=== PATIENT | female | born 1985 | race Caucasian/White ===

== ENCOUNTER 2021-12-16 07:04 | Emergency (ER) | payer MEDICAID ==
[~2021-12-16] VITALS: Ht 160 cm; Wt 68.2 kg
[2021-12-16 07:08] VITALS: BP 126/84
[2021-12-16] MEDS ORDERED: acetaminophen 325mg tablet PO ONE (08:10)
[2021-12-16] MEDS ORDERED: ibuprofen tablet 400 MG TABLET PO ONE (08:10)
[2021-12-16] MEDS ORDERED: BACI1PAC7 TP (08:25)
== END 2021-12-16 08:35 | disposition home or self-care (01) ==
LOC: ER 07:05
DX: L55.1 Sunburn of second degree (principal); F17.200 Nicotine dependence, unspecified, uncomplicated; F12.90 Cannabis use, unspecified, uncomplicated
CPT/HCPCS: 99283